=== PATIENT | female | born 1995 | race Caucasian/White ===

== ENCOUNTER 2018-01-09 22:57 | Emergency (ER) | payer OTHER ==
[~2018-01-09] VITALS: Ht 160 cm; Wt 49.9 kg
[2018-01-10] MEDS ORDERED: FLUCONAZOLE 100 MG TABLET PO ONE
[2018-01-10 00:05] VITALS: BP 105/71
[2018-01-10] MEDS ORDERED: FLUCONAZOLE 100 MG TABLET ONE (00:05)
== END 2018-01-10 00:05 | disposition home or self-care (01) ==
LOC: ER 22:59
DX: B37.3 Candidiasis of vulva and vagina (principal)
CPT/HCPCS: 99283; A4663